=== PATIENT | female | born 1980 ===

== ENCOUNTER 2019-03-26 22:22 | Inpatient (IN) | payer OTHER ==
[~2019-03-26] VITALS: Ht 160 cm; Wt 73.3 kg
[~2019-03-26 22:22] MED LIST: ALPR1TAB2 PO; BCP; LURA40TA PO
--- NOTE | 2019-03-26 22:44 | NUR ---
PT BROUGHT TO ROOM VIA WHEELCHAIR. LAYING ON LEFT SIDE ON GURNEY. HAVING LOWER BACK PAIN WITH RIGHT LEG NUMBNESS.
[2019-03-26] MEDS ORDERED: METHOCARBAMOL 750 MG TABLET PO ONE (23:00)
[2019-03-26] MEDS ORDERED: DIAZEPAM 5 MG TABLET PO ONE (23:00)
[2019-03-26] MEDS ORDERED: METHOCARBAMOL 500 MG TABLET ONE (23:00)
[2019-03-26] MEDS ORDERED: KETOROLAC 30 MG/1 ML ONE (23:00)
[2019-03-26] MEDS ORDERED: KETOROLAC 30 MG/1 ML IM ONE (23:00)
[2019-03-26] MEDS ORDERED: DIAZEPAM 5 MG TABLET ONE ×2 (23:05→23:12)
--- NOTE | 2019-03-26 23:05 | NUR ---
PT MEDICATED PER EMAR.
--- NOTE | 2019-03-26 23:21 | NUR ---
URINE SAMPLE COLLECTED AND SENT.
[2019-03-26 23:53] LABS: CULTURE INDICATED? YES; HCG UR SG 1.037 (1.003-1.030); MICROSCOPIC AUTO
[2019-03-27] MEDS ORDERED: ONDANSETRON 2MG/ML, 2ML ONE (00:26)
[2019-03-27] MEDS ORDERED: MORPHINE SULFATE 4 MG/ML, 1ML ONE (00:27)
[2019-03-27] MEDS ORDERED: CEFTRIAXONE PMX 1GM/50ML 50 ML ONE (00:27)
[2019-03-27] MEDS ORDERED: CEFTRIAXONE PMX 1GM/50ML 50 ML IVPB ONE (00:30)
[2019-03-27] MEDS ORDERED: MORPHINE SULFATE 4 MG/ML, 1ML IVPush PRN (00:30)
[2019-03-27] MEDS ORDERED: ONDANSETRON 2MG/ML, 2ML IVPush ONE (00:30)
[2019-03-27 00:33] LABS: HCT (SEDRATE) 39.2 % (34.6-47.8)
[2019-03-27 00:34] LABS: BASOPHILS # (AUTO) 0.07 x10^3/uL (0-0.1); BASOPHILS % (AUTO) 1 % (0-1); EOSINOPHILS # (AUTO) 0.05 x10^3/uL (0-0.4); EOSINOPHILS % (AUTO) 1 % (1-7); LYMPHOCYTES # (AUTO) 2.12 x10^3/uL (1-3.4); LYMPHOCYTES % (AUTO) 22 % (22-44); MD NO; MEAN CORPUSCULAR HEMOGLOBIN 31.4 pg (27.0-34.8); MEAN CORPUSCULAR HGB CONC 33.6 g/dL (32.4-35.8); MEAN CORPUSCULAR VOLUME 93.7 fL (80-100); MEAN PLATELET VOLUME 8.1 fL (7.4-10.4); MONOCYTES # (AUTO) 0.91 x10^3/uL (0.2-0.8); MONOCYTES % (AUTO) 9 % (2-9); NEUTROPHILS # (AUTO) 6.56 x10^3/uL (1.8-6.8); NEUTROPHILS % (AUTO) 68 % (42-75); PLATELET COUNT 292 x10^3/uL (130-400); RED BLOOD COUNT 4.18 x10^6/uL (3.82-5.3); RED CELL DISTRIBUTION WIDTH 13.5 % (9.6-15.2)
[2019-03-27 00:45] LABS: ALBUMIN 3.5 g/dL (3.4-5.0); ANION GAP 6 mmol/L (5-15); C-REACTIVE PROTEIN, QUANT 0.17 mg/dL (0.02-0.49); CALCIUM 8.4 mg/dL (8.5-10.1); CHLORIDE 109 mmol/L (98-107); CREATININE 0.78 mg/dL (0.55-1.02)
--- NOTE | 2019-03-27 01:30 | NUR ---
PT MEDICATED PER MAR. PT DENIES ANY NEEDS AT THIS TIME. CALL LIGHT IS WITHIN REACH. FAMILY IS AT BEDSIDE.
[2019-03-27 01:55] VITALS: BP 159/97
[2019-03-27] MEDS ORDERED: TIZA4TAB PO (02:44)
[2019-03-27] MEDS ORDERED: GABA100C PO (02:44)
[2019-03-27] MEDS ORDERED: MELO15TA24 PO (02:44)
[2019-03-27] MEDS ORDERED: [UNRECOGNIZED DRUG - CODE] TP (02:44)
[2019-03-27] MEDS: BACLOFEN 10 MG TABLET PO PRN ×2 (07:28→15:54)
[2019-03-27] MEDS ORDERED: methylPREDNISolone 4mg DOSE PACK PO ONE (11:00)
[2019-03-27 11:39] VITALS: BP 157/102
[2019-03-27] MEDS: HYDROcodone/APAP 5/325 TABLET PO PRN ×2 (11:52→19:22)
[2019-03-27 13:56] VITALS: BP 143/93
[2019-03-27 19:06] VITALS: BP 163/99
[2019-03-27] MEDS ORDERED: ONDANSETRON ODT 4 MG ONE (21:53)
[2019-03-27] MEDS: ONDANSETRON ODT 4 MG PO PRN (21:55)
[2019-03-28 01:25] VITALS: BP 145/91
[2019-03-28] MEDS: HYDROcodone/APAP 5/325 TABLET PO PRN (05:18)
[2019-03-28 05:48] LABS: MEAN CORPUSCULAR HEMOGLOBIN 31.1 pg (27.0-34.8); MEAN CORPUSCULAR HGB CONC 33.2 g/dL (32.4-35.8); MEAN CORPUSCULAR VOLUME 93.9 fL (80-100); MEAN PLATELET VOLUME 8.1 fL (7.4-10.4); PLATELET COUNT 333 x10^3/uL (130-400); RED BLOOD COUNT 4.59 x10^6/uL (3.82-5.3); RED CELL DISTRIBUTION WIDTH 13.4 % (9.6-15.2)
[2019-03-28 05:49] LABS: CHLORIDE 107 mmol/L (98-107)
[2019-03-28 05:54] LABS: ANION GAP 6 mmol/L (5-15); CALCIUM 8.8 mg/dL (8.5-10.1)
[2019-03-28 06:14] LABS: BASOPHILS # (AUTO) 0.03 x10^3/uL (0-0.1); BASOPHILS % (AUTO) 0 % (0-1); EOSINOPHILS # (AUTO) 0.01 x10^3/uL (0-0.4); EOSINOPHILS % (AUTO) 0 % (1-7); LYMPHOCYTES # (AUTO) 2.22 x10^3/uL (1-3.4); LYMPHOCYTES % (AUTO) 17 % (22-44); MD SCAN; MONOCYTES % (AUTO) 5 % (2-9); NEUTROPHILS # (AUTO) 9.98 x10^3/uL (1.8-6.8); NEUTROPHILS % (AUTO) 77 % (42-75)
[2019-03-28 07:05] VITALS: BP 168/81
[2019-03-28] MEDS: BACLOFEN 10 MG TABLET PO PRN (08:42)
[2019-03-28] MEDS ORDERED: FLUCONAZOLE 100 MG TABLET PO SCH (09:00)
[2019-03-28] MEDS: morphine SULFATE 10 MG/ML, 1ML IVPush PRN ×2 (09:05→13:11)
[2019-03-28 12:00] VITALS: BP 147/92
[2019-03-28] MEDS: ONDANSETRON ODT 4 MG PO PRN (13:07)
[2019-03-28] MEDS ORDERED: GABA300C10 PO (13:31)
[2019-03-28] MEDS ORDERED: OXYC-302 PO (13:31)
[2019-03-28] MEDS ORDERED: METH4TAB2 PO (13:31)
== END 2019-03-28 14:45 | disposition home or self-care (01) | DRG 552 ==
LOC: ED 23:45 → EDIP 03-27 00:24 → 3NE 03-27 01:57 → DCLOUNGE 03-28 14:35
PROVIDERS: ADMIT Internal Medicine; ATTEND Internal Medicine
PROC: 0T9B70Z Drainage of Bladder with Drainage Device, Via Natural or Artificial Opening (ICD-10-PCS; principal; 2019-03-26)
DX: M51.17 Intervertebral disc disorders with radiculopathy, lumbosacral region (principal); E66.9 Obesity, unspecified; G89.29 Other chronic pain; N30.91 Cystitis, unspecified with hematuria; Z72.0 Tobacco use; Z74.01 Bed confinement status; Z68.28 Body mass index [BMI] 28.0-28.9, adult
CPT/HCPCS: 36415; 80048; 81001; 81025; 82040; 84145; 85025; 85651; 86140; 87086; 87147; 96374; 96375; G0378; J0696; J1885; J2405; J7509; Q0162; J2270

== ENCOUNTER 2019-06-28 18:54 | Emergency (ER) | payer OTHER ==
[~2019-06-28] VITALS: Ht 157.5 cm; Wt 71.0 kg
[2019-06-28 19:17] VITALS: BP 105/69
== END 2019-06-28 22:32 | disposition home or self-care (01) ==
LOC: ED 22:02
DX: M51.16 Intervertebral disc disorders with radiculopathy, lumbar region (principal); M51.14 Intervertebral disc disorders with radiculopathy, thoracic region; G89.29 Other chronic pain; N39.0 Urinary tract infection, site not specified; Z90.49 Acquired absence of other specified parts of digestive tract
CPT/HCPCS: 81001; 81025; 87077; 87086; 87186; 96372; 99283; J1885; J7512